=== PATIENT | female | born 1950 | race Two or more races ===

== ENCOUNTER 2017-08-09 12:02 | Outpatient (CLI) | payer OTHER ==
[~2017-08-09 12:02] MED LIST: ALEGRA; ALEGRA PO; CINTROID; HYZAAR 50-12.1 UDTAB PO; INTEGRA PLUS C1 EACH PO; NEURIN PO; SYNTHROID112 MCG PO; ZANTAC 7575 MG PO; ZANTAC300 MG PO; ZOCOR; [UNRECOGNIZED DRUG - OTHER] TP
== END 2017-08-09 12:10 | disposition home or self-care (01) ==
LOC: LAB 12:02
DX: C54.1 Malignant neoplasm of endometrium (principal)

== ENCOUNTER → 2017-08-10 | Outpatient (CLI) | payer OTHER | END | disposition home or self-care (01) | LOC: MRI 08:14 | DX: C64.1 Malignant neoplasm of right kidney, except renal pelvis (principal); D56.1 Beta thalassemia; D64.81 Anemia due to antineoplastic chemotherapy; E08.65 Diabetes mellitus due to underlying condition with hyperglycemia; E03.8 Other specified hypothyroidism; E09.65 Drug or chemical induced diabetes mellitus with hyperglycemia; I10 Essential (primary) hypertension | CPT/HCPCS: 74182; A9579; 74183 ==

== ENCOUNTER 2017-11-22 11:31 | Inpatient (IN) | payer OTHER ==
[~2017-11-22] VITALS: Ht 157.5 cm; Wt 44.5 kg
[2017-11-22] MEDS ORDERED: GLIMEPIRIDE1 MG (11:45)
== END 2017-12-03 12:51 | disposition home or self-care (01) | DRG 390 ==
LOC: ER 11:31 → MEDI 17:59 → SEC-K 17:59 → MEDI 22:08
PROC: BW21Y0Z Computerized Tomography (CT Scan) of Abdomen and Pelvis using Other Contrast, Unenhanced and Enhanced (ICD-10-PCS; principal; 2017-11-22)
PROC: 02HV33Z Insertion of Infusion Device into Superior Vena Cava, Percutaneous Approach (ICD-10-PCS; 2017-11-23)
PROC: 3E0436Z Introduction of Nutritional Substance into Central Vein, Percutaneous Approach (ICD-10-PCS; 2017-11-23)
DX: K56.690 Other partial intestinal obstruction (principal); Z88.0 Allergy status to penicillin; E87.6 Hypokalemia; I10 Essential (primary) hypertension; E09.9 Drug or chemical induced diabetes mellitus without complications; T38.0X5A Adverse effect of glucocorticoids and synthetic analogues, initial encounter; M10.09 Idiopathic gout, multiple sites; C54.1 Malignant neoplasm of endometrium; D63.0 Anemia in neoplastic disease

== ENCOUNTER 2018-01-14 20:07 | Emergency (ER) | payer OTHER ==
[~2018-01-14] VITALS: Ht 154.9 cm; Wt 5.9 kg
[~2018-01-14 20:07] MED LIST changes: +GLIMEPIRIDE1 MG
[2018-01-14] MEDS ORDERED: VITAMIN D325 GM (20:23)
== END 2018-01-15 10:35 | disposition home or self-care (01) ==
LOC: ER 20:07
DX: K52.89 Other specified noninfective gastroenteritis and colitis (principal)

== ENCOUNTER 2018-01-30 09:44 | Outpatient (CLI) | payer OTHER ==
[~2018-01-30 09:44] MED LIST changes: +VITAMIN D325 GM
== END 2018-01-30 15:31 | disposition home or self-care (01) ==
LOC: RX STUDY 09:44
DX: C54.1 Malignant neoplasm of endometrium (principal); C56.1 Malignant neoplasm of right ovary; D63.0 Anemia in neoplastic disease; E09.65 Drug or chemical induced diabetes mellitus with hyperglycemia; I10 Essential (primary) hypertension; D64.81 Anemia due to antineoplastic chemotherapy; E08.65 Diabetes mellitus due to underlying condition with hyperglycemia; E03.8 Other specified hypothyroidism; K56.690 Other partial intestinal obstruction

== ENCOUNTER 2018-02-08 19:46 | Inpatient (IN) | payer OTHER ==
[~2018-02-08] VITALS: Ht 149.9 cm; Wt 42.6 kg
== END 2018-03-11 11:11 | disposition home or self-care (01) | DRG 330 ==
LOC: ER 19:46 → SURH 02-09 20:37 → MEDJ 02-09 20:37 → MEDI 02-10 13:15 → SURH 02-10 13:15
PROVIDERS: Colon & Rectal Surgery
PROC: 8E0ZXY6 Isolation (ICD-10-PCS; 2018-02-09)
PROC: 02HV33Z Insertion of Infusion Device into Superior Vena Cava, Percutaneous Approach (ICD-10-PCS; 2018-02-10)
PROC: 3E0436Z Introduction of Nutritional Substance into Central Vein, Percutaneous Approach (ICD-10-PCS; 2018-02-10)
PROC: 4A12X4Z Monitoring of Cardiac Electrical Activity, External Approach (ICD-10-PCS; 2018-02-16)
PROC: B54NZZZ Ultrasonography of Left Upper Extremity Veins (ICD-10-PCS; 2018-02-19)
PROC: B246ZZZ Ultrasonography of Right and Left Heart (ICD-10-PCS; 2018-02-20)
PROC: BD13YZZ Fluoroscopy of Small Bowel using Other Contrast (ICD-10-PCS; 2018-02-21)
PROC: 30233N1 Transfusion of Nonautologous Red Blood Cells into Peripheral Vein, Percutaneous Approach (ICD-10-PCS; 2018-02-22)
PROC: 0DN80ZZ Release Small Intestine, Open Approach (ICD-10-PCS; 2018-02-28)
PROC: 0WJG0ZZ Inspection of Peritoneal Cavity, Open Approach (ICD-10-PCS; 2018-02-28)
PROC: 0DT80ZZ Resection of Small Intestine, Open Approach (ICD-10-PCS; principal; 2018-02-28 14:00)
DX: K56.51 Intestinal adhesions [bands], with partial obstruction (principal); A04.72 Enterocolitis due to Clostridium difficile, not specified as recurrent; N39.0 Urinary tract infection, site not specified; K52.89 Other specified noninfective gastroenteritis and colitis; I10 Essential (primary) hypertension; I48.0 Paroxysmal atrial fibrillation; E03.8 Other specified hypothyroidism; D50.8 Other iron deficiency anemias; B96.5 Pseudomonas (aeruginosa) (mallei) (pseudomallei) as the cause of diseases classified elsewhere; B95.2 Enterococcus as the cause of diseases classified elsewhere; N99.89 Other postprocedural complications and disorders of genitourinary system; E09.65 Drug or chemical induced diabetes mellitus with hyperglycemia; T38.0X5A Adverse effect of glucocorticoids and synthetic analogues, initial encounter; Z85.43 Personal history of malignant neoplasm of ovary

== ENCOUNTER 2018-04-18 10:38 | Outpatient (CLI) | payer OTHER | END 2018-04-18 13:44 | disposition home or self-care (01) | LOC: NUCLEAR 10:38 | DX: M81.0 Age-related osteoporosis without current pathological fracture (principal) ==

== ENCOUNTER 2018-05-02 13:08 | Outpatient (CLI) | payer OTHER | END 2018-05-02 13:12 | disposition home or self-care (01) | LOC: RAD 501 13:08 | DX: M54.5 Low back pain (principal); M54.16 Radiculopathy, lumbar region ==

== ENCOUNTER 2018-06-21 12:16 | Outpatient (CLI) | payer OTHER | END 2018-06-21 13:31 | disposition home or self-care (01) | LOC: SONOGRAMA 12:16 | DX: M75.121 Complete rotator cuff tear or rupture of right shoulder, not specified as traumatic (principal); M19.011 Primary osteoarthritis, right shoulder ==

== ENCOUNTER 2018-08-16 10:40 | Outpatient (CLI) | payer OTHER | END 2018-08-16 10:50 | disposition home or self-care (01) | LOC: RAD 10:40 | DX: M79.644 Pain in right finger(s) (principal) ==

== ENCOUNTER 2018-08-24 09:23 | Outpatient (CLI) | payer OTHER | END 2018-08-24 09:45 | disposition home or self-care (01) | LOC: MAMO-SONO 09:23 | DX: Z12.31 Encounter for screening mammogram for malignant neoplasm of breast (principal); Z87.898 Personal history of other specified conditions; N63.10 Unspecified lump in the right breast, unspecified quadrant; N63.20 Unspecified lump in the left breast, unspecified quadrant; C54.1 Malignant neoplasm of endometrium; C56.1 Malignant neoplasm of right ovary; E09.65 Drug or chemical induced diabetes mellitus with hyperglycemia; D63.0 Anemia in neoplastic disease; I10 Essential (primary) hypertension; D64.81 Anemia due to antineoplastic chemotherapy; E08.65 Diabetes mellitus due to underlying condition with hyperglycemia; E03.8 Other specified hypothyroidism ==

== ENCOUNTER 2018-11-16 20:31 | Emergency (ER) | payer OTHER ==
[~2018-11-16] VITALS: Ht 157.5 cm; Wt 65.8 kg
[2018-11-17] MEDS ORDERED: CIPRO500 MG PO (05:16)
[2018-11-17] MEDS ORDERED: ZANTAC300 MG PO (05:16)
== END 2018-11-17 05:34 | disposition home or self-care (01) ==
LOC: ER 20:31
DX: K62.89 Other specified diseases of anus and rectum (principal)

== ENCOUNTER 2019-04-06 05:32 | Day surgery (SDC) | payer OTHER ==
[~2019-04-06 05:32] MED LIST changes: +CIPRO500 MG PO
== END 2019-04-06 10:40 | disposition home or self-care (01) ==
LOC: AMB-ENDOS 05:32
DX: C20 Malignant neoplasm of rectum (principal)

== ENCOUNTER → 2019-05-09 08:50 | Outpatient (CLI) | payer OTHER | END | disposition home or self-care (01) | LOC: LAB 08:50 | DX: N39.0 Urinary tract infection, site not specified (principal) ==

== ENCOUNTER → 2019-10-08 11:16 | Outpatient (CLI) | payer OTHER | END | disposition home or self-care (01) | LOC: LAB 11:16 | DX: D50.8 Other iron deficiency anemias (principal); I10 Essential (primary) hypertension; E03.8 Other specified hypothyroidism; D68.8 Other specified coagulation defects; C56.9 Malignant neoplasm of unspecified ovary; R97.8 Other abnormal tumor markers; R97.1 Elevated cancer antigen 125 [CA 125]; R97.0 Elevated carcinoembryonic antigen [CEA]; C54.1 Malignant neoplasm of endometrium; C56.1 Malignant neoplasm of right ovary; D63.0 Anemia in neoplastic disease; D64.81 Anemia due to antineoplastic chemotherapy; E08.65 Diabetes mellitus due to underlying condition with hyperglycemia ==

== ENCOUNTER 2019-10-08 12:48 | Outpatient (CLI) | payer OTHER | END 2019-10-08 12:53 | disposition home or self-care (01) | LOC: NUCLEAR 12:48 | DX: I87.2 Venous insufficiency (chronic) (peripheral) (principal); E03.8 Other specified hypothyroidism; E08.65 Diabetes mellitus due to underlying condition with hyperglycemia; D64.81 Anemia due to antineoplastic chemotherapy; I10 Essential (primary) hypertension; D63.0 Anemia in neoplastic disease; C56.1 Malignant neoplasm of right ovary; C54.1 Malignant neoplasm of endometrium ==

== ENCOUNTER 2019-10-09 09:22 | Outpatient (CLI) | payer OTHER | END 2019-10-09 09:36 | disposition home or self-care (01) | LOC: TOM 09:22 | DX: C54.1 Malignant neoplasm of endometrium (principal); C56.1 Malignant neoplasm of right ovary; D63.0 Anemia in neoplastic disease; I10 Essential (primary) hypertension; D64.81 Anemia due to antineoplastic chemotherapy; E08.65 Diabetes mellitus due to underlying condition with hyperglycemia; E03.8 Other specified hypothyroidism ==

== ENCOUNTER 2019-12-01 08:10 | Outpatient (CLI) | payer OTHER | END 2019-12-01 08:14 | disposition home or self-care (01) | LOC: LAB 08:10 | DX: D50.8 Other iron deficiency anemias (principal); I10 Essential (primary) hypertension; N39.0 Urinary tract infection, site not specified; C54.1 Malignant neoplasm of endometrium; C56.1 Malignant neoplasm of right ovary; D63.0 Anemia in neoplastic disease; D64.81 Anemia due to antineoplastic chemotherapy; E08.65 Diabetes mellitus due to underlying condition with hyperglycemia; E03.8 Other specified hypothyroidism ==

== ENCOUNTER → 2020-01-11 09:15 | Outpatient (CLI) | payer OTHER | END | disposition home or self-care (01) | LOC: LAB 09:15 | PROVIDERS: ATTEND Internal Medicine Hematology & Oncology | DX: D50.8 Other iron deficiency anemias (principal); I10 Essential (primary) hypertension; C56.9 Malignant neoplasm of unspecified ovary; R97.8 Other abnormal tumor markers; R97.1 Elevated cancer antigen 125 [CA 125]; R97.0 Elevated carcinoembryonic antigen [CEA]; C54.1 Malignant neoplasm of endometrium; C56.1 Malignant neoplasm of right ovary; D63.0 Anemia in neoplastic disease; D64.81 Anemia due to antineoplastic chemotherapy; E08.65 Diabetes mellitus due to underlying condition with hyperglycemia; E03.8 Other specified hypothyroidism ==

== ENCOUNTER → 2020-03-20 | Outpatient (CLI) | payer OTHER | END | disposition home or self-care (01) | LOC: TOM 08:17 | PROVIDERS: ATTEND Internal Medicine Hematology & Oncology | DX: C54.1 Malignant neoplasm of endometrium (principal); C56.1 Malignant neoplasm of right ovary; D63.0 Anemia in neoplastic disease; I10 Essential (primary) hypertension; D64.81 Anemia due to antineoplastic chemotherapy; E08.65 Diabetes mellitus due to underlying condition with hyperglycemia; E03.8 Other specified hypothyroidism ==

== ENCOUNTER 2020-05-16 13:06 | Outpatient (CLI) | payer OTHER | END 2020-05-16 13:36 | disposition home or self-care (01) | LOC: NUCLEAR 13:06 | PROVIDERS: ATTEND Internal Medicine Cardiovascular Disease | DX: M81.0 Age-related osteoporosis without current pathological fracture (principal) ==

== ENCOUNTER → 2020-06-19 08:48 | Outpatient (CLI) | payer OTHER ==
[~2020-06-19 08:48] MED LIST changes: +CITRACAL + D M1 EACH PO; +INTEGRA CAPSUL1 EACH PO; +VOLTAREN100 GM; +ZOFRAN8 MG PO
== END | disposition home or self-care (01) ==
LOC: LAB 08:48
PROVIDERS: ATTEND Internal Medicine Hematology & Oncology
DX: E03.8 Other specified hypothyroidism (principal); C54.1 Malignant neoplasm of endometrium; D50.8 Other iron deficiency anemias; I10 Essential (primary) hypertension; R74.02 Elevation of levels of lactic acid dehydrogenase [LDH]; K76.89 Other specified diseases of liver; C56.1 Malignant neoplasm of right ovary; D63.0 Anemia in neoplastic disease; D64.81 Anemia due to antineoplastic chemotherapy; E08.65 Diabetes mellitus due to underlying condition with hyperglycemia

== ENCOUNTER 2020-06-27 12:56 | Inpatient (IN) | payer OTHER ==
[~2020-06-27] VITALS: Ht 157.5 cm; Wt 72.6 kg
[~2020-06-27 12:56] MED LIST changes: -CITRACAL + D M1 EACH PO; -INTEGRA CAPSUL1 EACH PO; -VOLTAREN100 GM; -ZOFRAN8 MG PO
[2020-06-27] MEDS ORDERED: VOLTAREN100 GM (13:28)
[2020-06-27] MEDS ORDERED: ZOFRAN8 MG PO (13:29)
[2020-06-27] MEDS ORDERED: INTEGRA CAPSUL1 EACH PO (13:29)
[2020-06-27] MEDS ORDERED: CITRACAL + D M1 EACH PO (13:29)
== END 2020-07-02 12:24 | disposition home or self-care (01) | DRG 812 ==
LOC: ER 12:56 → MEDI 06-28 10:03
PROVIDERS: ADMIT Internal Medicine Cardiovascular Disease; ATTEND Internal Medicine Cardiovascular Disease
PROC: 30233N1 Transfusion of Nonautologous Red Blood Cells into Peripheral Vein, Percutaneous Approach (ICD-10-PCS; 2020-06-30)
PROC: 0DJD8ZZ Inspection of Lower Intestinal Tract, Via Natural or Artificial Opening Endoscopic (ICD-10-PCS; principal; 2020-07-01)
PROC: 30233N1 Transfusion of Nonautologous Red Blood Cells into Peripheral Vein, Percutaneous Approach (ICD-10-PCS; 2020-07-01)
DX: D62 Acute posthemorrhagic anemia (principal); K62.5 Hemorrhage of anus and rectum; E11.65 Type 2 diabetes mellitus with hyperglycemia; Z79.4 Long term (current) use of insulin; C54.1 Malignant neoplasm of endometrium; R31.9 Hematuria, unspecified; D63.0 Anemia in neoplastic disease; E03.8 Other specified hypothyroidism; I10 Essential (primary) hypertension; K62.89 Other specified diseases of anus and rectum; I48.0 Paroxysmal atrial fibrillation

== ENCOUNTER 2020-09-02 08:04 | Outpatient (CLI) | payer OTHER ==
[~2020-09-02 08:04] MED LIST changes: +CITRACAL + D M1 EACH PO; +INTEGRA CAPSUL1 EACH PO; +VOLTAREN100 GM; +ZOFRAN8 MG PO
== END 2020-09-02 08:12 | disposition home or self-care (01) ==
LOC: LAB 08:04
PROVIDERS: ATTEND Internal Medicine Cardiovascular Disease
DX: N20.0 Calculus of kidney (principal); I10 Essential (primary) hypertension; E11.9 Type 2 diabetes mellitus without complications; E03.8 Other specified hypothyroidism; E78.2 Mixed hyperlipidemia; D64.89 Other specified anemias; R10.84 Generalized abdominal pain; E55.9 Vitamin D deficiency, unspecified; I44.0 Atrioventricular block, first degree

== ENCOUNTER 2020-09-04 07:45 | Outpatient (CLI) | payer OTHER | END 2020-09-04 07:59 | disposition home or self-care (01) | LOC: TOM 07:45 | PROVIDERS: ATTEND Internal Medicine Hematology & Oncology | DX: C54.1 Malignant neoplasm of endometrium (principal); C56.1 Malignant neoplasm of right ovary; D63.0 Anemia in neoplastic disease; I10 Essential (primary) hypertension; D64.81 Anemia due to antineoplastic chemotherapy; E09.65 Drug or chemical induced diabetes mellitus with hyperglycemia; E03.8 Other specified hypothyroidism | CPT/HCPCS: 74177; Q9965 ==

== ENCOUNTER → 2020-09-11 07:45 | Outpatient (CLI) | payer OTHER | END | disposition home or self-care (01) | LOC: LAB 07:45 | PROVIDERS: ATTEND Internal Medicine Hematology & Oncology | DX: C54.1 Malignant neoplasm of endometrium (principal); C56.1 Malignant neoplasm of right ovary; D63.0 Anemia in neoplastic disease; I10 Essential (primary) hypertension; D64.81 Anemia due to antineoplastic chemotherapy; E08.65 Diabetes mellitus due to underlying condition with hyperglycemia; E03.8 Other specified hypothyroidism ==

== ENCOUNTER 2020-09-24 08:43 | Outpatient (CLI) | payer OTHER | END 2020-09-24 08:47 | disposition home or self-care (01) | LOC: LAB 08:43 | PROVIDERS: ATTEND Internal Medicine Hematology & Oncology | DX: D50.8 Other iron deficiency anemias (principal); I10 Essential (primary) hypertension; R74.02 Elevation of levels of lactic acid dehydrogenase [LDH]; K76.89 Other specified diseases of liver; C54.1 Malignant neoplasm of endometrium; C56.1 Malignant neoplasm of right ovary; D63.0 Anemia in neoplastic disease; D64.81 Anemia due to antineoplastic chemotherapy; E08.65 Diabetes mellitus due to underlying condition with hyperglycemia; E03.8 Other specified hypothyroidism ==

== ENCOUNTER → 2020-10-21 08:30 | Outpatient (CLI) | payer OTHER ==
[~2020-10-21 08:30] MED LIST changes: +APREPITANT1 EACH PO; +EXEMESTANE25 MG PO; +GLIMEPIRIDE1 M1 PO; +HYDROCHLOROTH12.5 MG PO; +INTESTINEX680 M1 PO; +LOSARTAN POTASS50 MG PO; +LOSARTAN-HCTZ1 EACH; +METOPROLOL SUCC25 MG PO; +OMEPRAZOLE40 MG PO; +ONDANSETRON HCL8 MG PO; +PEPCID AC20 MG PO; +SYNTHROID88 MCG PO
== END | disposition home or self-care (01) ==
LOC: LAB 08:30
PROVIDERS: ATTEND Internal Medicine Hematology & Oncology
DX: C54.1 Malignant neoplasm of endometrium (principal); C56.1 Malignant neoplasm of right ovary; D63.0 Anemia in neoplastic disease; E09.65 Drug or chemical induced diabetes mellitus with hyperglycemia; I10 Essential (primary) hypertension; E03.9 Hypothyroidism, unspecified; D64.81 Anemia due to antineoplastic chemotherapy

== ENCOUNTER 2020-10-21 08:56 | Outpatient (CLI) | payer OTHER ==
[~2020-10-21 08:56] MED LIST changes: -APREPITANT1 EACH PO; -EXEMESTANE25 MG PO; -GLIMEPIRIDE1 M1 PO; -HYDROCHLOROTH12.5 MG PO; -INTESTINEX680 M1 PO; -LOSARTAN POTASS50 MG PO; -LOSARTAN-HCTZ1 EACH; -METOPROLOL SUCC25 MG PO; -OMEPRAZOLE40 MG PO; -ONDANSETRON HCL8 MG PO; -PEPCID AC20 MG PO; -SYNTHROID88 MCG PO
== END 2020-10-21 09:04 | disposition home or self-care (01) ==
LOC: MAMO-SONO 08:56
PROVIDERS: ATTEND Internal Medicine Hematology & Oncology
DX: N63.0 Unspecified lump in unspecified breast (principal); N64.89 Other specified disorders of breast; Z12.31 Encounter for screening mammogram for malignant neoplasm of breast; C54.1 Malignant neoplasm of endometrium; C56.1 Malignant neoplasm of right ovary; D63.0 Anemia in neoplastic disease; I10 Essential (primary) hypertension; D64.81 Anemia due to antineoplastic chemotherapy; E08.65 Diabetes mellitus due to underlying condition with hyperglycemia; E03.8 Other specified hypothyroidism

== ENCOUNTER 2020-11-14 08:06 | Outpatient (CLI) | payer OTHER | END 2020-11-14 08:08 | disposition home or self-care (01) | LOC: LAB 08:06 | PROVIDERS: ATTEND Internal Medicine Hematology & Oncology | DX: C54.1 Malignant neoplasm of endometrium (principal); C56.1 Malignant neoplasm of right ovary; D63.0 Anemia in neoplastic disease; E09.65 Drug or chemical induced diabetes mellitus with hyperglycemia; I10 Essential (primary) hypertension; D64.81 Anemia due to antineoplastic chemotherapy; E03.8 Other specified hypothyroidism ==

== ENCOUNTER 2020-11-19 09:45 | Emergency (ER) | payer OTHER ==
[~2020-11-19] VITALS: Ht 157.5 cm; Wt 59.0 kg
[2020-11-19] MEDS ORDERED: GLIMEPIRIDE1 M1 PO (10:00)
[2020-11-19] MEDS ORDERED: EXEMESTANE25 MG PO (10:00)
[2020-11-19] MEDS ORDERED: APREPITANT1 EACH PO (10:01)
[2020-11-19] MEDS ORDERED: SYNTHROID88 MCG PO (10:01)
[2020-11-19] MEDS ORDERED: ONDANSETRON HCL8 MG PO (10:01)
[2020-11-19] MEDS ORDERED: LOSARTAN POTASS50 MG PO (10:01)
[2020-11-19] MEDS ORDERED: OMEPRAZOLE40 MG PO (10:01)
[2020-11-19] MEDS ORDERED: HYDROCHLOROTH12.5 MG PO (10:02)
[2020-11-19] MEDS ORDERED: METOPROLOL SUCC25 MG PO (10:02)
[2020-11-19] MEDS ORDERED: PEPCID AC20 MG PO (17:07)
[2020-11-19] MEDS ORDERED: INTESTINEX680 M1 PO (17:07)
== END 2020-11-19 19:20 | disposition home or self-care (01) ==
LOC: ER 09:45
DX: C48.1 Malignant neoplasm of specified parts of peritoneum (principal); R10.31 Right lower quadrant pain; R10.32 Left lower quadrant pain

== ENCOUNTER 2020-11-28 14:17 | Inpatient (IN) | payer OTHER ==
[~2020-11-28] VITALS: Ht 157.5 cm; Wt 58.1 kg
[~2020-11-28 14:17] MED LIST changes: +APREPITANT1 EACH PO; +EXEMESTANE25 MG PO; +GLIMEPIRIDE1 M1 PO; +HYDROCHLOROTH12.5 MG PO; +INTESTINEX680 M1 PO; +LOSARTAN POTASS50 MG PO; +METOPROLOL SUCC25 MG PO; +OMEPRAZOLE40 MG PO; +ONDANSETRON HCL8 MG PO; +PEPCID AC20 MG PO; +SYNTHROID88 MCG PO
[2020-12-01] MEDS ORDERED: LOSARTAN-HCTZ1 EACH (13:19)
== END 2020-12-23 13:16 | disposition expired | DRG 377 ==
LOC: ER 14:17 → SURH 21:30
PROVIDERS: ADMIT Internal Medicine Cardiovascular Disease; ATTEND Internal Medicine Cardiovascular Disease
PROC: 30233N1 Transfusion of Nonautologous Red Blood Cells into Peripheral Vein, Percutaneous Approach (ICD-10-PCS; principal; 2020-11-28)
PROC: BW2110Z Computerized Tomography (CT Scan) of Abdomen and Pelvis using Low Osmolar Contrast, Unenhanced and Enhanced (ICD-10-PCS; 2020-11-28)
PROC: 3E0F7SF Introduction of Other Gas into Respiratory Tract, Via Natural or Artificial Opening (ICD-10-PCS; 2020-11-28)
PROC: 8E0ZXY6 Isolation (ICD-10-PCS; 2020-11-28)
PROC: 02HV33Z Insertion of Infusion Device into Superior Vena Cava, Percutaneous Approach (ICD-10-PCS; 2020-11-29)
PROC: BW2110Z Computerized Tomography (CT Scan) of Abdomen and Pelvis using Low Osmolar Contrast, Unenhanced and Enhanced (ICD-10-PCS; 2020-12-09)
PROC: 4A033R1 Measurement of Arterial Saturation, Peripheral, Percutaneous Approach (ICD-10-PCS; 2020-12-14)
PROC: 4A12X4Z Monitoring of Cardiac Electrical Activity, External Approach (ICD-10-PCS; 2020-12-14)
DX: K62.5 Hemorrhage of anus and rectum (principal); A41.9 Sepsis, unspecified organism; D62 Acute posthemorrhagic anemia; N13.39 Other hydronephrosis; N13.8 Other obstructive and reflux uropathy; R18.8 Other ascites; N17.8 Other acute kidney failure; C78.6 Secondary malignant neoplasm of retroperitoneum and peritoneum; C54.1 Malignant neoplasm of endometrium; Z66 Do not resuscitate; Z20.822 Contact with and (suspected) exposure to COVID-19; I46.8 Cardiac arrest due to other underlying condition; E87.6 Hypokalemia